=== PATIENT | female | born 1995 | race Caucasian/White ===

== ENCOUNTER → 2017-05-15 | Emergency (ER) | payer OTHER ==
[~2017-05-15] VITALS: Ht 160 cm; Wt 62.1 kg
[~2017-05-15] MED LIST: PRENATAL + DHA1 EAC1; VITAMIN D2000 UNIT
== END | disposition home or self-care (01) ==
LOC: ER 20:47
DX: O21.0 Mild hyperemesis gravidarum (principal); Z34.01 Encounter for supervision of normal first pregnancy, first trimester

== ENCOUNTER 2017-09-26 13:36 | Inpatient (IN) | payer OTHER ==
[~2017-09-26] VITALS: Ht 162.6 cm; Wt 75.7 kg
[2017-10-20] MEDS ORDERED: IRON PO (21:42)
[2017-10-23] MEDS ORDERED: IRON18 MG PO (08:35)
== END 2017-10-25 14:44 | DRG 766 ==
LOC: OB/GYN 10-11 13:29 → LDR 10-21 03:31 → OB/GYN 10-21 03:31
PROVIDERS: Obstetrics & Gynecology
PROC: 4A1HXCZ Monitoring of Products of Conception, Cardiac Rate, External Approach (ICD-10-PCS; 2017-10-21)
PROC: 10D00Z1 Extraction of Products of Conception, Low, Open Approach (ICD-10-PCS; principal; 2017-10-21 17:00)
DX: O65.4 Obstructed labor due to fetopelvic disproportion, unspecified (principal); O69.81X0 Labor and delivery complicated by cord around neck, without compression, not applicable or unspecified; Z3A.37 37 weeks gestation of pregnancy; Z37.0 Single live birth

== ENCOUNTER 2017-10-20 20:57 | Outpatient (CLI) | payer OTHER ==
[2017-10-20] MEDS ORDERED: IRON PO (21:42)
== END 2017-10-21 04:03 | disposition still patient (30) ==
LOC: OBS/DEL 20:57
DX: O47.1 False labor at or after 37 completed weeks of gestation (principal); Z34.03 Encounter for supervision of normal first pregnancy, third trimester